=== PATIENT | male | born 1940 | race Caucasian/White ===

== ENCOUNTER 2016-04-02 20:38 | Inpatient (IN) | payer OTHER, BC ==
[~2016-04-02] VITALS: Ht 170.2 cm; Wt 96.6 kg
--- NOTE | ~2016-04-02 | EKG ---
[address] [place] [address] ELECTROCARDIOGRAM REPORT Name: SHAYZACH Room #: 211-P ADM IN M.R.#: [id number] Admission: 04/02/16 Attend Phys: Slade Amaya MD Discharge: Date of : 44 Report #: [id number] THIS REPORT FOR: //name// [facility] Test Date: 2016-04-02 Test Time: 22:05:54 Pat Name: ZACH SHAY Department: Room: 211 P Gender: M Digital Marketing Consultant: TK : 1940 Requested By: Barb Roberson Order Number: [id number] MD: Jose Castaneda Measurements Intervals [place] Rate: 80 P: -32 MN: 107 QRS: 118 QRSD: 157 T: 138 QT: 500 QTc: 577 Interpretive Statements Ventricular-paced rhythm No further analysis attempted due to paced rhythm Compared to ECG 09/28/2015 10:18:20 No significant changes Electronically Signed On 04-03-2016 16:06:26 FIRE TECHNOLOGY INSTRUCTOR by Jose Castaneda [email or web address] <ELECTRONICALLY SIGNED> By: Jose Castaneda MD 04/03/16 1606 04 04 Jose Castaneda MD /EPI
--- NOTE | ~2016-04-02 | HC ---
[facility] [place] [address] [place] [address] CONSULTATION Name: ZACH SHAY Room #: [facility] IN M.R.#: [id number] Admission: 04/02/16 Attend Phys: Slade Amaya MD Discharge: 04/08/16 Date of : 42 Report #: [id number] THIS REPORT FOR: //name// CC: Slade Owenswster DATE OF SERVICE: 04/03/2016 CONSULTATION CHIEF COMPLAINT: Infectious diseases. HISTORY OF PRESENT ILLNESS: The patient is a 76-year-old white male, who was admitted to [facility] on 04/02 complaining of fevers to 101, generalized bodyaches and increased dyspnea, not improved with Levaquin. Workup demonstrated influenza A as well as bilateral basilar infiltrates, heart failure and elevated troponin. Infectious Disease consultation was requested to assist with antibiotic management. The patient has a past history of hypertension and hyperlipidemia. He has aortic stenosis with a calculated valve area of one square centimeter. He has chronic heart failure and paroxysmal atrial fibrillation. He has a past history of endocarditis. The patient has a severe COPD, requiring 2-4 L of supplemental oxygen at home. He has sleep apnea and he has renal insufficiency, he has been treated in the past with 4 ventral hernias with repair with mesh. This was complicated with infection of the mesh. The patient has also had diverticulitis, requiring surgery including colostomy and then a colostomy takedown, and an appendectomy. He has had pacemaker placement. He notes allergy to Ativan and Flagyl. The said he got a rash from Keflex, but he is not sure that this is accurate. He has not had any problem with other cephalosporins. MEDICATION RECONCILIATION: The patient is currently on Levaquin 500 mg every 48 hours, Tamiflu 30 mg daily, dutasteride 0.5 mg daily, budesonide 0.5 mg daily, warfarin 6 mg daily, DuoNeb aerosol q.4h., amiodarone 20 mg daily, tamsulosin 0.4 mg daily, aspirin 81 mg daily, pantoprazole 40 mg daily, hydrocodone 1 tablet q.i.d. p.r.n., Tylenol p.r.n., guaifenesin 1200 mg q.12 and Lasix 40 mg IV b.i.d., this was discontinued after the ER. FAMILY HISTORY: Noncontributory. SOCIAL HISTORY: The patient is . He was a heavy smoker, up to 2 packs per day, but quit about 2 years ago. He has significant COPD. No history of alcohol or drugs. REVIEW OF SYSTEMS: The patient notes he is feeling much better, his dyspnea is [facility] [address] [place] [address] CONSULTATION Name: SHAYZACH BAILEY Room #: 211-P DIS IN M.R.#: [id number] Admission: 04/02/16 Attend Phys: Slade Amaya MD Discharge: 04/08/16 Date of : 42 Report #: [id number] markedly improved. He is not really complaining of fevers, chills, or sweats. He has chronic dyspnea. He is on BiPAP with supplemental oxygen. The patient denies any headache, sinus congestion, sore throat, trouble swallowing. Maximum temperature at home was 101. The patient did have a cough that is somewhat productive, but has improved now . Dyspnea has improved. He is not short of breath at rest at this time. He has no pain in the chest. He is not complaining of any arrhythmias. The patient denies nausea, vomiting, or diarrhea. Genitourinary, no complaints. Extremities, no complaints. PHYSICAL EXAMINATION: GENERAL: The patient appears stated age, alert, oriented and comfortable, not in any distress. VITAL SIGNS: Normal. The patient is afebrile. Blood pressure 95/37. SKIN: Shows no rash, no lesions. ENT: Negative. CARDIOVASCULAR: Heart sounds normal. CHEST: Breath sounds are diminished. ABDOMEN: Belly is soft and not tender. EXTREMITIES: Unremarkable. LABORATORY DATA: White count is 9.9 and hemoglobin 10.4. Electrolytes are normal. BUN 59 and creatinine 3.2. Liver function tests are normal. Troponin is elevated at 2.0 in the ER, is now down to 1.27. The chest x-ray shows right and left lower lobe infiltrate versus small effusions. Influenza antigen was positive for influenza A. In summary, the patient is severe heart and lung disease, who develops influenza A with infiltrates, heart failure and possible STEMI. At this time, I concur with the choice of Oseltamivir for the influenza. Levaquin has become increasing problematic for empiric therapy as we are seeing increasing resistance to quinolones. I would rather use Rocephin to cover the possibility of a secondary bacterial infection. It is possible that the infiltrates may just be related to influenza. Pneumococcal and legionella antigens may be helpful to look for bacterial secondary infection. We need to continue isolation for 5 days, although the patient is on the Tamiflu. I appreciate the opportunity to offer input in the care of this pleasant gentleman. Dr. Castaneda will return tomorrow for additional followup. We will be obtaining sputum for culture, this may help direct further therapy. [facility] [address] [place] [address] CONSULTATION Name: ZACH SHAY Room #: 211-P [facility] IN M.R.#: [id number] Admission: 04/02/16 Attend Phys: Slade Amaya MD Discharge: 04/08/16 Date of : 42 Report #: [id number] Thank you again for this consultation. <ELECTRONICALLY SIGNED> By: Isael Doss MD 04/17/162017 0955 1239 Isael Doss MD /nt
--- NOTE | ~2016-04-02 | 2DMMODE ---
[facility] [email or web address] [address] 2 D/M-MODE ECHOCARDIOGRAM Name: ZACH SHAY Room #: 211-P [facility] IN .R.#: [id number] Admission: 04/02/16 Attend Phys: Sánchez Weiss Discharge: Date of : 42 Date of Service: 04/04/16 0955 Report #: [id number] THIS REPORT FOR: //name// Transthoracic Echocardiography Ordering physician: Barb Roberson Referring physician: Hank Mishra M.D., Elinor Mtz, Barb Molina Plant Accountant: Nan Campos Indications/History: NSTEMI. Hx: NISCM, COPD, Afib, HLP, AICD BP: 124 / HR: 76bpm Height: 67in Weight: 213.6lb 43 Study data: M-mode, complete 2D, complete spectral Doppler, and color Doppler. Location: Echo laboratory. Routine. Image quality was adequate. The study was technically limited due to body habitus and lung disease. Parasternal window was low; off axis apical window. 2D measurements Normal Normal LVID ED 64.3mm 36-57 IVS ED 9.3mm 6-11 LVID ES 54.5mm 23-40 LVPW ED 10.3mm 6-11 LA volume 34ml/m2 16-28 AoRoot diam 38mm 21-37 index ED LVOT diameter 24mm 18-23 Findings: Left ventricle: The cavity size was dilated. Wall thickness was normal. Systolic function was severely reduced. The estimated ejection fraction was in the range of 25% to 30%. Severe diffuse hypokinesis. Right ventricle: The cavity size was normal. Systolic function was mildly reduced. Right atrium: The atrium was mildly dilated. Pacer wire or [facility] [place] [place] [address] 2 D/M-MODE ECHOCARDIOGRAM Name: ZACH SHAY Room #: 211-P ADM IN M.R.#: [id number] Admission: 04/02/16 Attend Phys: Sánchez Weiss Discharge: Date of : 42 Date of Service: 04/04/16 0955 Report #: [id number] catheter noted in right atrium. Left atrium: The atrium was mildly dilated. Volume index: 34ml/m2 (S). Aortic valve: Moderately calcified leaflets. Mobile, filamentous density consistent with known vegetation. Doppler: There was moderate stenosis. Mild regurgitation. Peak velocity: 328.5cm/s (S). Mean gradient: 25.7mm Hg (S). Peak gradient: 43.2mm Hg (S). Similar to Mar 2015. Mitral valve: The valve appears to be grossly normal. Doppler: There was no evidence for stenosis. At least moderate regurgitation. Peak E-wave velocity: 95.5cm/s. Peak gradient: 3.7mm Hg (D). Peak A-wave velocity: 77.1cm/s. Tricuspid valve: Structurally normal valve. Doppler: There was no evidence for stenosis. Mild regurgitation. Regurgitant peak velocity: 297.3cm/s. Peak RV-RA gradient: 35mm Hg (S). Pulmonic valve: Structurally normal valve. Doppler: There was no evidence for stenosis. Trivial regurgitation. Pericardium: There was no pericardial effusion. Aorta: Aortic root: The aortic root was upper limits of normal in size. Pulmonary artery: Systolic pressure was estimated to be 40mm Hg. Diastolic function: Features are consistent with a pseudonormal left ventricular filling pattern, with concomitant abnormal relaxation and increased filling pressure (grade 2 diastolic dysfunction). Systemic veins: Inferior vena cava: The vessel was normal in size; the respirophasic diameter changes were in the normal range (= 50%). Conclusions Technically difficult study. 1. Left ventricle: Systolic function was severely reduced. The estimated ejection fraction was in the range of 25% to 30%. Severe diffuse hypokinesis. 2. Aortic valve: Moderately calcified leaflets. Mobile, filamentous density consistent with known vegetation. There was moderate stenosis. Mild regurgitation. Mean gradient: 25.7mm Hg (S). Peak gradient: 43.2mm Hg (S). Similar to Mar 2015. [facility] [address] [place] [address] 2 D/M-MODE ECHOCARDIOGRAM Name: ZACH SHAY Room #: 211-P [facility] IN [facility]#: [id number] Admission: 04/02/16 Attend Phys: Sánchez Weiss Discharge: Date of : 44 Date of Service: 04/04/16 0955 Report #: [id number] 3. Mitral valve: The valve appears to be grossly normal. At least moderate regurgitation. 4. Pericardium, extracardiac: There was no pericardial effusion. 5. Pulmonary arteries: Systolic pressure was estimated to be 40mm Hg. <ELECTRONICALLY SIGNED> By: Hank Mishra MD, [facility] 04/04/16 1117 0955 1117 Hank Mishra MD, FACC /joshua
--- NOTE | ~2016-04-02 | EKG ---
[address] [address] ELECTROCARDIOGRAM REPORT Name: SHAYZACH Room #: 211-P ADM IN M.R.#: [id number] Admission: 04/02/16 Attend Phys: Slade Amaya MD Discharge: Date of : 42 Report #: [id number] THIS REPORT FOR: //name// [facility] Test Date: 2016-04-03 Test Time: 07:49:08 Pat Name: ZACH SHAY Department: Room: 211 P Gender: M Concrete Technician: LACHELLE : 1940 Requested By: Jose Castaneda Order Number: [id number] MD: Jose Castaneda Measurements Intervals [place] Rate: 67 P: 86 SD: 115 QRS: 104 QRSD: 160 T: QT: 452 QTc: 478 Interpretive Statements A-V dual-paced rhythm with some inhibition No further analysis attempted due to paced rhythm Compared to ECG 09/28/2015 10:18:20 No significant changes Electronically Signed On 04-03-2016 16:09:20 GED INSTRUCTOR by Jose Castaneda [email or web address] <ELECTRONICALLY SIGNED> By: Jose Castaneda MD 04/03/16 1609 0749 0749 Jose Castaneda MD /EPI
--- NOTE | ~2016-04-02 | HC ---
[facility] [place] [place] [address] CONSULTATION Name: ZACH SHAY Room #: [facility] ADM IN M.R.#: [id number] Admission: 04/02/16 Attend Phys: Slade Amaya MD Discharge: Date of : 42 Report #: [id number] THIS REPORT FOR: //name// CC: Slade Mtz DATE OF ADMISSION: 04/02/2016. DATE OF CONSULTATION: 04/03/2016 REASON FOR CONSULTATION: Acute kidney injury on top of chronic kidney disease. HISTORY OF PRESENT ILLNESS: This is a 76-year-old male who was transferred up from [facility]. He presented with dyspnea and cough and started feeling poorly, had myalgias and became more short of breath. He went to [facility]. Chest x-ray showed some left lower extremity infiltrate. He was positive for influenza A. He was transferred here to [facility]. At this time, he states he is feeling better. He still dyspneic. He is still having cough. He is not having chest pain. He says he just does not feel as sick as he did yesterday. We are asked to see him because he has an elevated creatinine level. It is up to 3.2 today. He runs a baseline creatinine in the 1.6-1.9 range. He is aware that he has been told previously as chronic kidney disease stage III. He denies the use of any nonsteroidals. He is chronically on torsemide 80 mg a day as a diuretic. Again, he runs a baseline creatinine level in the 1.6-1.9 range. In reviewing his vital signs, he has had intermittent episodes of hypotension since admission several are running in the upper 80-90 systolic range of diastolics 30-40, heart rates have been in the 70s and 80s mostly he has been afebrile, at times he has been mildly hypoxemic. He reports no difficulty passing urine. He says often times he has edema. He is taking the torsemide at home 80 mg daily, has been put on some IV Lasix on a b.i.d. basis here. PAST MEDICAL HISTORY: Nonischemic cardiomyopathy, although I would note he had an elevated troponin when he came in. He has a biventricular pacemaker in place. He has some COPD, wears chronic oxygen at home. He also has paroxysmal atrial fibrillation, some chronic anemia, chronic obstructive sleep apnea, prior deep venous thrombosis, hyperlipidemia. He also has some chronically elevated creatinine as noted above. He has had his AICD placed. He has had bilateral rotator cuff surgery, surgery for diverticulitis, tonsillectomy, ileostomy and colostomy, both establishment and then take down. MEDICATIONS: On admission include amiodarone 200 mg daily, Colestid, Avodart 0.5 mg daily, Nexium 40 mg daily, fluticasone inhaler, Mucinex, hydrocodone p.r.n., meropenem, metolazone 5 mg twice weekly, metoprolol 100 mg daily, Singulair, Carafate 1 g t.i.d., tamsulosin 0.4 mg daily, Spiriva inhaler, torsemide 80 mg daily and warfarin. [address] [address] CONSULTATION Name: ZACH SHAY BAILEY Room #: 211-P [facility] IN M.R.#: [id number] Admission: 04/02/16 Attend Phys: Slade Amaya MD Discharge: Date of : 42 Report #: [id number] ALLERGIES: Are listed to HEPARIN, LORAZEPAM, CEPHALOSPORINS, METRONIDAZOLE, and ZAFIRLUKAST. FAMILY HISTORY: Negative for renal disease. SOCIAL HISTORY: The patient is , lives in [place], [place]. He is retired. REVIEW OF SYSTEMS: He is very hard of hearing. He normally has dyspnea at baseline. He says he also normally has some edema. He takes the high dose torsemide and keep it fairly well controlled. He tried to avoid sodium in his diet. He has had the myalgias and also some chest pain prior to arrival, after it has been somewhat down. He thinks he possibly has some fever and did have documented chills along with the myalgias. He previously reported difficulty voiding urine, but says that since he has been on the finasteride and also on the high dose diuretics, that has gotten easier. PHYSICAL EXAMINATION: GENERAL: A 76-year-old male, awake and responsive, does appear mildly dyspneic, has supplemental oxygen on board. VITAL SIGNS: Most recent blood pressure 102/45, heart rate 89, temperature 97.7, oxygen saturation of 92%. HEENT: Shows pupils are equal and reactive. Sclerae nonicteric. Oral mucosa is somewhat dry. NECK: Veins are not distended. NECK: Supple, no adenopathy. CHEST: Shows decreased breath sounds bilaterally in the bases. I hear no wheezes, few rhonchi are present. CARDIOVASCULAR: Heart has a regular rate and rhythm, somewhat distended heart sounds. ABDOMEN: Mildly protuberant. He has a substantial ventral hernia in place. Bowel sounds are present. Abdomen is soft and nontender. EXTREMITIES: Showed no peripheral edema at this time. He has diminished peripheral pulses. LABORATORY DATA: Sodium 138, potassium 3.7, chloride 98, bicarbonate 30, BUN 59, creatinine 3.2, glucose 156. Calcium 7.5, total protein 6.4, albumin 2.7. White count 9.9, hemoglobin 10.2, hematocrit 32.4, platelets 205,000. Blood gas on admission pH 7.38, pCO2 of 47.7, pO2 of 95, lactate 2.35. I reviewed a recent ultrasound of his kidneys and a recent CT scan of his chest, which showed some of the upper poles of the kidneys, he has multiple prior acquired cysts in his kidneys, no evidence of obstruction. ASSESSMENT: 1. Acute kidney injury. Creatinine levels up to 3.2. He has not been [facility] [address] [place] [address] CONSULTATION Name: LAURITAZACH BAILEY Room #: 211-P [facility] IN ..#: [id number] Admission: 04/02/16 Attend Phys: Slade Amaya MD Discharge: Date of : 42 Report #: [id number] oliguric. I think he had some problems with his acute infection and likely some hypotension. He is chronically on an angiotensin receptor lokesh, also is on the high dose diuretics. I cannot see that he received any other nephrotoxic exposures. Because of his chronic kidney disease, he is certainly at risk for acute worsening and I think that has happened now. I expect this should improve as he gets over his acute pulmonary process. 2. Chronic kidney disease stage III. He has somewhat dense kidneys on scan and has multiple acquired cysts all consistent with that. 3. Nonischemic cardiomyopathy, chronic and severe, he will need to be back on high dose diuretics going forward, but will hold them at this time. 4. Acute pulmonary infection with influenza A positivity. Workup ongoing per Pulmonary. 5. Chronic lower extremity edema by his report, but it has actually improved at this time. We will keep him off his diuretics as noted above. PLAN: 1. Continue current medications. 2. I will also hold the Lasix, which has been ordered. 3. He is taking enough and he should be able to maintain hydration on his own. 4. We will check fractional excretion of sodium. 5. I expect he should show improvement in the next few days. 6. We will follow along the care of this very pleasant patient. <ELECTRONICALLY SIGNED> By: Fahad Barrientos MD 04/04/16 0731 1705 1821 Fahad Barrientos MD /nt
[~2016-04-02 20:38] MED LIST: ACCUPRIL; ACETAMINOPHEN325 M1 PO; ACETAMINOPHEN650 M5 PO; ADULT LOW DOSE81 MG PO; ADVAIR 250-501 EACH INH; ALLEGRA180 MG PO; AMIODARONE HCL400 MG PO; AMOXICILLIN 50500 M1 PO; AMOXICILLIN 50500 MG PO; APAP650 PO; ASPIR 8181 MG PO; ASPIRIN BUFFER325 MG PO; AUGMENTIN 875-1 EACH; AUGMENTIN 875875 MG PO; AVODART0.5 MG PO; B-121000 MC2 PO; BACTRIM DS TAB1 EACH PO; BENTYL10 MG PO; CARAFATE 1 GM TA1 G1 PO; CARAFATE 11 GM/10 M1 PO; CARAFATE1 GM/10 ML PO; CARVEDILOL12.5 MG PO; CENTRUM SILVER1 EAC1 PO; CENTRUM SILVER1 EAC4 PO; CIPRO250 M1 PO; CIPRO500 MG PO; COLACE100 MG PO; COLESTID1 GM PO; COUMADIN 3 MG TA3 M1 PO; COUMADIN 5 MG TA5 M1 PO; COUMADIN7.5 MG PO; DEEP SEA NASAL44 M1 NASAL; DEMADEX20 MG PO; DILTIAZEM 24HR240 M1 PO; DIPHENOXYLATE/A1 TA1 PO; DOXYCYCLINE 10100 M2 PO; DOXYCYCLINE 10100 MG PO; FENOFIBRATE145 MG PO; FERREX 150150 MG PO; FISHOIL; FLEXERIL PO; FLOMAX PO; GENTAMICIN IV; HYDROCODON-ACE1 EAC7 PO; HYDROCODONE-AP1 EAC6 PO; IBUPROFEN 800800 M1 PO; ILEVRO1.7 ML OP; IMDUR 30 MG TAB30 M1 PO; ISOSORBIDE MONO30 M1 PO; K-DUR10 MEQ PO; KEFLEX500 MG PO; LANOXIN 0.250.25 M1 PO; LASIX 40 MG TAB40 M1 PO; LASIX 40 MG TAB40 M2 PO; LASIX 40 MG TAB40 MG PO; LEVALBUTER1.25 MG/0. INH; LEVALBUTER1.25 MG/3 IH; LEVAQUIN; LEVAQUIN 500 M500 M2 PO; LEVAQUIN 500 M500 M4 PO; LOMOTIL TABLET1 EACH PO; LOPRESSOR100 M1 PO; LOTEMAX5 ML; MAGNESIUM400 MG PO; MEROPENEM500 MG IV; METOLAZONE 2.52.5 M1 PO; METOLAZONE 5 MG5 MG PO; MUCINEX TA600 MG/TA1 PO; MUCINEX TA600 MG/TA2 PO; MUCINEX600 MG PO; MULTI-VITAMIN1 EAC5 PO; MULTIVITAMINS1 EAC7 PO; NEXIUM40 MG PO; NICOTINE TRANSD21 M1 TRANSDERM; NITROGLYCERIN0.4 MG PO; NITROGLYCERIN0.4 MG SUBLING; NORCO 10-325 T1 EACH PO; NORCO 5-325 TA1 EACH; NORCO 5-325 TA1 EACH PO; NYSTATIN 1100000 U/M PO; PACERONE 200 M200 M1 PO; PACERONE 200 M200 MG PO; PLAVIX 75 MG TA75 M1 PO; POTASSIUM PO; POTASSIUM20 PO; PREDNISONE 10 M10 MG; PREDNISONE 10 M10 MG PO; PREDNISONE 20 M20 M1 PO; PREDNISONE 20 M20 MG PO; PROBIOTIC1 EAC1 PO; PROCTOFOAM-HC 110 GM; PROCTOFOAM-HC F10 G1 RECTAL; PROMETHAZINE V180 ML; PROMETHAZINE V480 M1 PO; PROMETHAZINE/C118 ML PO; PROTONIX40 M1 PO; QUINU10 PD PO; QUINU5 PD PO; REQUIP 1 MG TABL1 M1 PO; SINGULAIR 10 MG10 M1 PO; SINGULAIR 10 MG10 MG PO; SPIRIVA INH; TAMSULOSIN HCL0.4 M1 PO; TOPROL XL100 MG PO; TOPROL XL25 MG PO; TORSEMIDE20 MG PO; TRICOR; TRICOR145 MG PO; TYLENOL325 MG PO; VANCOMYCIN1.25 GM/21 IV; VERAMYST10 GM INH; VERAMYST10 GM NASAL; VESICARE 5 MG TA5 M1 PO; VESICARE10 M1 PO; VICODIN ES TAB1 EACH PO; VIGAMOX3 M1 OTIC; VITAMIN C1000 MG PO; XOPENEX 0.63 MG/3 M1 INH; XOPENEX 1.25 MG/3 ML INH; XOPENEX1.25 MG/3 INH; ZAROXOLYN 5MG TA5 MG PO; [UNRECOGNIZED DRUG - OTHER] VG
[2016-04-02 21:10] VITALS: BP 88/40
[2016-04-02 21:42] LABS: INR 1.3; PROTIME 13.9 Seconds (9.3-11.4)
[2016-04-02 22:10] LABS: ABG SAMPLE TYPE ARTERIAL; BE(vivo) 2.5 mmol/L (-2 to +3); LACTATE 2.35 mmol/L (0.5-2.0); PCO2 47.7 mmHg (35.0-45.0); Pressure Support 8 cm H20; STICK SITE R.RADIAL; pH 7.387 (7.360-7.450); sO2 97.1 % (92.0-98.0); tCO2 29.5 mmol/L (24.0-30.0)
[2016-04-02 23:27] VITALS: BP 110/72
[2016-04-03 02:15] LABS: HEMATOCRIT 32.4 % (42.0-52.0); HEMOGLOBIN 10.2 gm/dL (14.0-18.0); MCH 24.6 pg (26.0-34.0); MCHC 31.5 % (28.0-37.0); MCV 78.1 fL (80.0-100.0); RBC 4.15 mil/uL (4.50-6.00); RDW 21.6 % (10.5-14.5); WBC 9.9 thou/uL (4.0-11.0)
[2016-04-03 03:33] VITALS: BP 83/42
[2016-04-03 03:39] LABS: ALBUMIN 2.7 g/dL (3.4-5.0); ALKALINE PHOSPHATASE 66 U/L (46-116); ANION GAP 10 mmol/L (7-16); BUN 59 mg/dL (7-18); CALCIUM 7.5 mg/dL (8.5-10.1); CHLORIDE 98 mmol/L (98-107); CO2 30 mmol/L (21-32); CREATININE 3.2 mg/dL (0.6-1.3); GLUCOSE 156 mg/dL (70-99); POTASSIUM 3.7 mmol/L (3.5-5.1); SGOT 26 U/L (15-37); SGPT 20 U/L (30-65); SODIUM 138 mmol/L (136-145); TOTAL BILIRUBIN 0.3 mg/dL (<0.1-1.0); TOTAL PROTEIN 6.4 g/dL (6.4-8.2)
[2016-04-03 03:40] LABS: CHOLESTEROL 142 mg/dL (<200); HDL CHOLESTEROL 27 mg/dL (>40); LDL CHOLESTEROL 87 mg/dL (<100); SERUM ASSESSMENT Clear; TC:HDL 5.3 Ratio (Not establshd); TRIGLYCERIDE 143 mg/dL (<150); VLDL 29 mg/dL (<40)
[2016-04-03 03:43] LABS: TROPONIN-I 1.76 ng/mL (<0.04-0.07)
[2016-04-03 07:40] VITALS: BP 90/35
[2016-04-03 11:20] VITALS: BP 102/45
[2016-04-03 15:35] VITALS: BP 94/45
[2016-04-03 19:52] VITALS: BP 95/37
[2016-04-04 04:12] LABS: INR 1.2; PROTIME 12.9 Seconds (9.3-11.4)
[2016-04-04 04:19] VITALS: BP 100/59
[2016-04-04 04:30] LABS: ALBUMIN 2.6 g/dL (3.4-5.0); CREATININE 2.8 mg/dL (0.6-1.3); PHOSPHORUS 3.7 mg/dL (2.5-4.9); POTASSIUM 3.1 mmol/L (3.5-5.1)
[2016-04-04 08:00] VITALS: BP 124/43
[2016-04-04 11:25] VITALS: BP 107/32
[2016-04-04 16:30] VITALS: BP 111/56
[2016-04-04 16:58] LABS: ABG SAMPLE TYPE ARTERIAL; BE(vivo) 4.4 mmol/L (-2 to +3); HCO3 28.9 mmol/L (22.0-26.0); LACTATE 2.18 mmol/L (0.5-2.0); O2(CT) 14.6 mL/dL (15.0-23.0); O2Hb 95.1 % (92.0-98.0); PCO2 42.9 mmHg (35.0-45.0); PO2 96.9 mmHg (80.0-100.0); pH 7.446 (7.360-7.450); sO2 97.6 % (92.0-98.0); tCO2 30.2 mmol/L (24.0-30.0)
[2016-04-04 17:00] LABS: STICK SITE L.RADIAL
[2016-04-04 20:35] VITALS: BP 108/53
[2016-04-05 04:02] VITALS: BP 100/45
[2016-04-05 04:18] LABS: HEMATOCRIT 30.6 % (42.0-52.0); HEMOGLOBIN 9.7 gm/dL (14.0-18.0); MCH 24.4 pg (26.0-34.0); MCHC 31.7 % (28.0-37.0); RBC 3.97 mil/uL (4.50-6.00); RDW 22.2 % (10.5-14.5); WBC 4.6 thou/uL (4.0-11.0)
[2016-04-05 04:34] LABS: ALBUMIN 2.6 g/dL (3.4-5.0); CALCIUM 8.1 mg/dL (8.5-10.1); CREATININE 2.1 mg/dL (0.6-1.3); MAGNESIUM 1.6 mg/dL (1.8-2.4); PHOSPHORUS 3.7 mg/dL (2.5-4.9); POTASSIUM 3.4 mmol/L (3.5-5.1)
[2016-04-05 08:08] VITALS: BP 120/52
[2016-04-05 09:52] LABS: INR 1.6; PROTIME 16.1 Seconds (9.3-11.4)
[2016-04-05 12:11] VITALS: BP 115/61
[2016-04-05 16:05] VITALS: BP 113/83
[2016-04-05 19:04] VITALS: BP 108/47
[2016-04-05 22:06] LABS: URINE CREATININE-RANDOM* 37.4 mg/dL (Not Estab.)
[2016-04-06 03:59] VITALS: BP 129/59
[2016-04-06 04:32] LABS: HEMATOCRIT 32.8 % (42.0-52.0); HEMOGLOBIN 10.1 gm/dL (14.0-18.0); MCH 24.2 pg (26.0-34.0); MCHC 30.9 % (28.0-37.0); MCV 78.5 fL (80.0-100.0); RBC 4.17 mil/uL (4.50-6.00); RDW 22.5 % (10.5-14.5); WBC 4.9 thou/uL (4.0-11.0)
[2016-04-06 05:08] LABS: ALBUMIN 2.8 g/dL (3.4-5.0); CALCIUM 8.5 mg/dL (8.5-10.1); CREATININE 1.7 mg/dL (0.6-1.3); PHOSPHORUS 3.5 mg/dL (2.5-4.9); POTASSIUM 3.8 mmol/L (3.5-5.1)
[2016-04-06 08:40] VITALS: BP 120/56
[2016-04-06 09:41] LABS: INR 1.9; PROTIME 19.2 Seconds (9.3-11.4)
[2016-04-06 12:01] VITALS: BP 135/68
[2016-04-06 16:48] VITALS: BP 133/70
[2016-04-06 20:28] VITALS: BP 135/70
[2016-04-06 22:07] LABS: INFLUENZA B Negative (Negative); METAPNEUMOVIRUS Negative (Negative)
[2016-04-07 03:15] LABS: HEMATOCRIT 33.1 % (42.0-52.0); HEMOGLOBIN 10.3 gm/dL (14.0-18.0); MCH 24.2 pg (26.0-34.0); MCHC 30.9 % (28.0-37.0); MCV 78.3 fL (80.0-100.0); RBC 4.23 mil/uL (4.50-6.00); RDW 22.1 % (10.5-14.5)
[2016-04-07 03:35] LABS: CALCIUM 8.3 mg/dL (8.5-10.1); CREATININE 1.6 mg/dL (0.6-1.3); POTASSIUM 4.7 mmol/L (3.5-5.1)
[2016-04-07 04:32] VITALS: BP 133/55
[2016-04-07 07:49] LABS: INR 2.7; PROTIME 28.3 Seconds (9.3-11.4)
[2016-04-07 12:12] VITALS: BP 123/57
[2016-04-07 15:52] VITALS: BP 117/58
[2016-04-07 19:44] VITALS: BP 118/55
[2016-04-08 03:42] VITALS: BP 136/36
[2016-04-08 04:53] LABS: HEMATOCRIT 34.5 % (42.0-52.0); HEMOGLOBIN 10.6 gm/dL (14.0-18.0); MCH 23.9 pg (26.0-34.0); MCHC 30.8 % (28.0-37.0); MCV 77.7 fL (80.0-100.0); RBC 4.45 mil/uL (4.50-6.00); RDW 22.1 % (10.5-14.5)
[2016-04-08 05:14] LABS: CALCIUM 8.6 mg/dL (8.5-10.1); CREATININE 1.6 mg/dL (0.6-1.3)
[2016-04-08 05:28] LABS: POTASSIUM 4.8 mmol/L (3.5-5.1)
[2016-04-08 07:15] VITALS: BP 136/36
[2016-04-08 08:50] VITALS: BP 121/48
[2016-04-08 09:13] LABS: INR 3.8; PROTIME 38.2 Seconds (9.3-11.4)
[2016-04-08] MEDS ORDERED: PREDNISONE 10 M10 MG PO (10:26)
[2016-04-08] MEDS ORDERED: DEMADEX20 MG PO (10:26)
[2016-04-08 10:53] VITALS: BP 136/36
== END 2016-04-08 15:45 | disposition home health service (06) | DRG 177 ==
LOC: 2N 20:38
PROVIDERS: Family Medicine; Hospitalist; Internal Medicine Nephrology; Internal Medicine Pulmonary Disease; Nurse Practitioner
PROC: 5A09457 Assistance with Respiratory Ventilation, 24-96 Consecutive Hours, Continuous Positive Airway Pressure (ICD-10-PCS; principal; 2016-04-02)
DX: J15.6 Pneumonia due to other Gram-negative bacteria (principal); J96.21 Acute and chronic respiratory failure with hypoxia; I50.43 Acute on chronic combined systolic (congestive) and diastolic (congestive) heart failure; I13.0 Hypertensive heart and chronic kidney disease with heart failure and stage 1 through stage 4 chronic kidney disease, or unspecified chronic kidney disease; N17.9 Acute kidney failure, unspecified; J44.1 Chronic obstructive pulmonary disease with (acute) exacerbation; I42.8 Other cardiomyopathies; I25.110 Atherosclerotic heart disease of native coronary artery with unstable angina pectoris; J09.X1 Influenza due to identified novel influenza A virus with pneumonia; E78.5 Hyperlipidemia, unspecified; I35.0 Nonrheumatic aortic (valve) stenosis; J09.X2 Influenza due to identified novel influenza A virus with other respiratory manifestations; G47.33 Obstructive sleep apnea (adult) (pediatric); K21.9 Gastro-esophageal reflux disease without esophagitis; N18.3 Chronic kidney disease, stage 3 (moderate); I48.2 Chronic atrial fibrillation; M79.1 Myalgia; I48.0 Paroxysmal atrial fibrillation; N40.0 Benign prostatic hyperplasia without lower urinary tract symptoms; Z88.8 Allergy status to other drugs, medicaments and biological substances; Z99.81 Dependence on supplemental oxygen; Z98.890 Other specified postprocedural states; Z86.718 Personal history of other venous thrombosis and embolism; Z87.891 Personal history of nicotine dependence; Z95.810 Presence of automatic (implantable) cardiac defibrillator; Z93.3 Colostomy status; Z93.2 Ileostomy status; Z82.49 Family history of ischemic heart disease and other diseases of the circulatory system; Z79.82 Long term (current) use of aspirin; Z28.21 Immunization not carried out because of patient refusal
CPT/HCPCS: 10081

== ENCOUNTER 2016-07-16 10:42 | Inpatient (IN) | payer OTHER, BC ==
[~2016-07-16] VITALS: Ht 170.2 cm; Wt 98.4 kg
--- NOTE | ~2016-07-16 | HC ---
[facility] [place] [place] [address] CONSULTATION Name: ZACH SHAY BAILEY Room #: 455-[facility] IN M.R.#: [id number] Admission: 07/16/16 Attend Phys: Alpesh Dumont MD Discharge: 07/18/16 Date of : 42 Report #: [id number] THIS REPORT FOR: //name// CC: Jeff ATKINSON PCP DATE OF SERVICE: 07/17/2016 REASON FOR CONSULTATION: Exacerbation of chronic obstructive pulmonary disease. IMPRESSION: 1. Jqjuo-hd-ulsyvqg hypoxic respiratory failure. 2. Basilar infiltrate. 3. Left-sided chest pressure. 4. Possible pleural effusion. 5. Cardiomyopathy/atrial fibrillation. 6. Elevated troponin. 7. Fgcas-xf-yvbiive renal failure. 8. Hypercapnic respiratory failure. PLAN: Agree with corticosteroids. We will add vancomycin at present. We will leave on Levaquin as established regimen. May switch to Zosyn. We will continue aerosol and mucolytic. May wish to diurese. If D-dimer is significantly elevated, we will do a V/Q scan. He will continue using his Trilogy. HISTORY OF PRESENT ILLNESS: This 76-year-old comes in and relates that for about 6 weeks he has been having left-sided chest discomfort, cough, no hemoptysis. He has been using his Trilogy and he is taking his Coumadin. He denies fever, chills or night sweats. He denies nausea or vomiting. He has progressive dyspnea on minimal exertion. PAST SURGICAL HISTORY: Include ICD, rotator cuff, tonsillectomy, ostomy with takedown, hernia repair. FAMILY HISTORY: Cardiomyopathy. SOCIAL HISTORY: Quit smoking 2 years ago. Occasional ETOH. Lives with family. REVIEW OF SYSTEMS: No fever or chills. Positive cough, dyspnea, left chest pressure, no peripheral edema. No nausea or vomiting. No hemoptysis, hematemesis or hematuria. He recently saw Dr. Munoz, placed on prednisone and Levaquin. HOME MEDICATIONS: Include Flomax, warfarin, amiodarone, metoprolol, hydrocodone, torsemide and Levaquin. [facility] [address] [place] [address] CONSULTATION Name: ZACH SHAY Room #: 455-P [facility] IN [facility].#: [id number] Admission: 07/16/16 Attend Phys: Alpesh Dumont MD Discharge: 07/18/16 Date of : 42 Report #: [id number] PHYSICAL EXAMINATION: VITAL SIGNS: Temperature 36.7, pulse 84, respirations 19 and BP 102/53, on 6-1/2 liters 91%. NEUROLOGIC: He is alert and just having ate, in no distress. NECK: No JVD. LUNGS: Mild expiratory wheeze bilaterally, decreased breath sounds right greater than left. HEART: Regular. ABDOMEN: Bowel sounds present, soft, surgical sites noted. EXTREMITIES: Show no clubbing, cyanosis or edema. LABORATORY DATA: Chest x-ray showed bibasilar atelectasis, possible small right effusion. BUN 46, creatinine 2.3, albumin 32. White count 13.4, hemoglobin 9.8, platelets 330. Troponin 0.11. We will follow closely with you. <ELECTRONICALLY SIGNED> By: Moraima Peres MD 07/19/16 2316 0929 2206 Moraima Peres MD /nt
--- NOTE | ~2016-07-16 | HC ---
[facility] [place] [address] CONSULTATION Name: ZACH SHAY Room #: 455-[facility] IN M.R.#: [id number] Admission: 07/16/16 Attend Phys: Alpesh Dumont MD Discharge: 07/18/16 Date of : 44 Report #: [id number] THIS REPORT FOR: //name// CC: Jeff Newton NO PCP REASON FOR CONSULTATION: Elevated troponin. HISTORY OF PRESENT ILLNESS: The patient is a 76-year-old male with a history of COPD, resolved; nonischemic cardiomyopathy, status post Bi-V ICD implantation, who presents to the emergency room with worsening shortness of breath. He reports the shortness of breath has been a kind of worse for a few weeks. Recently saw Dr. Munoz who gave him antibiotics and some steroids. He denies any problems with chest heaviness or chest tightness. He denies any PND or orthopnea. He denies any increased swelling. He denies presyncope or syncope. REVIEW OF SYSTEMS: GENERAL: No fevers or chills. HEENT: No blurred vision. CARDIOVASCULAR: As above. PULMONARY: No productive cough. GASTROINTESTINAL: No nausea or vomiting. GENITOURINARY: No dysuria. MUSCULOSKELETAL: No myalgias or arthralgias. ENDOCRINE: No heat or cold intolerance. NEUROLOGIC: No focal weakness or stroke-like symptoms. PAST MEDICAL HISTORY: 1. Nonischemic cardiomyopathy, last echo EF 50-55%. 2. COPD. 3. AFib. 4. Bi-V ICD. 5. Obstructive sleep apnea. 6. Chronic renal insufficiency. 7. Prior DVT. 8. 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 9. Hypertension. 10. GERD. 11. Ileostomy and colostomy. 12. 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 SOCIAL HISTORY: Does not smoke. Lives at home. FAMILY HISTORY: Noncontributory. ALLERGIES: HEPARIN, LORAZEPAM, METRONIDAZOLE, VANCOMYCIN. [facility] [address] [place] [address] CONSULTATION Name: ZACH SHAY [place] Room #: [address] [place] [address]#: [id number] Admission: 07/16/16 Attend Phys: Alpesh Dumont MD Discharge: 07/18/16 Date of : 44 Report #: [id number] HOME MEDICATIONS: Include fluticasone and salmeterol, Nexium, Montelukast, tamsulosin, levalbuterol, nitroglycerin, warfarin, hydrocodone, acetaminophen, amiodarone 200 mg a day, sucralfate, guaifenesin, metoprolol 100 mg in the evening, Avodart, Spiriva, fluticasone, and Levaquin. PHYSICAL EXAMINATION: VITAL SIGNS: Temperature is 36.7, pulse 84, respirations 19, blood pressure 102/53, and saturations are 90%-91%. GENERAL: He is in no acute distress, walking around in his room. HEENT: Oropharynx is clear. NECK: Supple. No thyromegaly or carotid bruits. HEART: Regular rate and rhythm with normal S1 and S2. No S3, S4. He does not have elevated jugular venous pressure. LUNGS: Clear to auscultation bilaterally. There are no crackles. There are diminished breath sounds bilaterally. ABDOMEN: Soft, nontender, nondistended with no hepatosplenomegaly. He has the deformities to the lower abdomen. EXTREMITIES: There is no clubbing, cyanosis, or edema. Cranial nerves II-XII are intact. His EKG shows normal sinus rhythm with biventricular paced rhythm. Telemetry shows a normal sinus rhythm with some nonsustained VT. LABORATORY DATA: His white count is 13.4, hemoglobin 9.8, his platelets are 330. His blood gas 7.4, pCO2 of 39, pO2 of 64. Coags: INR is 1.7. Chemistries: Sodium is 137, potassium 4.0, and creatinine 2.3. Troponin was 0.13 followed by 0.11, followed by 0.10. His proBNP is 2299. His chest x-ray appears unchanged from prior EKGs. ASSESSMENT: 1. Shortness of breath. 2. Chronic obstructive pulmonary disease. 3. Nonischemic cardiomyopathy, which is resolved. 4. Biventricular implantable cardioverter defibrillator. 5. Paroxysmal atrial fibrillation. 6. Obstructive sleep apnea. 7. Chronic renal insufficiency. 8. Prior deep venous thrombosis. 9. Hypertension. 10. Gastroesophageal reflux disease. 11. Ileostomy. 12. Prior endocarditis. In summary, the patient is a 76-year-old with a history of both chronic obstructive pulmonary disease and cardiac issues, presenting with worsening shortness of breath. He has a slightly elevated troponin, but denies any chest [address] [address] CONSULTATION Name: ZACH SHAY Room #: 455-[facility] IN M.R.#: [id number] Admission: 07/16/16 Attend Phys: Alpesh Dumont MD Discharge: 07/18/16 Date of : 42 Report #: [id number] pain or chest tightness, and there is no ischemia on his EKG. I think this is more likely related to his chronic hypoxemia due to his chronic obstructive pulmonary disease. He does have a slightly elevated proBNP, but clinically he does not appear to be volume overloaded and therefore, I am inclined to continue his standard cardiac medications. I recommend optimizing his pulmonary status and he already has a scheduled appointment to follow up with Dr. Mishra in a few weeks. <ELECTRONICALLY SIGNED> By: Jose Castaneda MD 07/29/16 1106 1221 0125 Jose Castaneda MD /nt
--- NOTE | ~2016-07-16 | H ---
[facility] [place] [address] [place] [address] HISTORY AND PHYSICAL Name: ZACH SHAY Room #: 170-9 ADM IN M.R.#: [id number] Admission: 07/16/16 Attend Phys: Jeff Newton MD Discharge: Date of : 42 Report #: [id number] THIS REPORT FOR: //name// CC: Jeff Newton NO PCP REASON FOR PRESENTATION: Shortness of breath. HISTORY OF PRESENT ILLNESS: The patient is 76-year-old with extensive past medical history including and not limited to COPD, cardiomyopathy with biventricular ICD. He sees Dr. Munoz for his COPD related issues. He uses 5 liters of oxygen at home. He is also known to have history of paroxysmal atrial fibrillation, iron deficiency anemia, chronic kidney disease, DVT. 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 He did not improve, so he decided to present to the emergency room for further evaluation and management. He is also known to have obstructive sleep apnea. On presentation to the emergency room, he received breathing treatment and that improved his breathing. However, he was found to have a mildly elevated troponin and CPK and was admitted for further evaluation and management. He denies any chest pain. PAST MEDICAL HISTORY: 1. Significant for cardiomyopathy. Status post pacemaker insertion. 2. Advanced COPD. 3. AFib. 4. Chronic iron deficiency anemia. 5. DVT. 6. Hyperlipidemia. 7. Remote history of endocarditis. 8. Status post colostomy with take down. 9. Status post ileostomy. 10. Multiple abdominal hernia repairs. 11. Diverticulitis. PAST SURGICAL HISTORY: 1. ICD. 2. Rotator cuffs. 3. Tonsillectomy. 4. Diverticulitis culminating into colostomy. This was also taken down, culminated into an ileostomy. 5. Prolonged hernia repair. FAMILY HISTORY: Significant for cardiomyopathy in sister. SOCIAL HISTORY: No drug or alcohol abuse. He lives with his . 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 [facility] [address] [place] [address] HISTORY AND PHYSICAL Name: ZACH SHAY [place] Room #: 170-9 [facility] IN ..#: [id number] Admission: 07/16/16 Attend Phys: Jeff Newton MD Discharge: Date of : 44 Report #: [id number] REVIEW OF SYSTEMS: GENERAL: No fever or chills. CARDIOVASCULAR: No palpitation, no chest pain; however, he does have shortness of breath. PULMONARY: Shortness of breath. GASTROINTESTINAL: No nausea or vomiting. GENITOURINARY: No frequency, no urgency. MEDICATIONS: 1. Flomax. 2. Warfarin. 3. Amiodarone. 4. Metoprolol. 5. Hydrocodone. 6. Torsemide. 7. Levofloxacin. PHYSICAL EXAMINATION: GENERAL: He is alert, oriented, in no apparent distress. He is on oxygen by nasal. VITAL SIGNS: Pulse rate was 84, respiratory rate 18, blood pressure 102/48. HEAD AND NECK: No jugular venous distention, no bruit, no thyromegaly. CHEST: Decreased air entry bilaterally with occasional wheeze. CARDIOVASCULAR: No rub detected. ABDOMEN: Soft, nontender with no hepatosplenomegaly. There are multiple incisional hernias from the previous colostomy, ileostomy sites. LOWER EXTREMITIES: No edema. LABORATORY VALUES: Reviewed. Anemia with hemoglobin of 9.8. Elevated creatinine at 2.2. Mildly elevated troponin. ASSESSMENT, IMPRESSION AND PLAN: 1. Chronic obstructive pulmonary disease exacerbation. 2. Chronic kidney disease. 3. Anemia. 4. Status post biventricular ICD device. 5. Anemia chronic with iron deficiency status. 6. Mildly elevated troponin nonsignificant. 7. Admission. 8. Continue with his home medications for his comorbid conditions. 9. Nebulizers. 10. Antibiotics. 11. IV steroids. 12. Serial troponins to rule out an acute cardiac event. 13. Creatinine seems to be stable and we will continue with the same chronic kidney disease related medications. He has a very mildly elevated troponin of [address] [address] HISTORY AND PHYSICAL Name: ZACH SHAY Room #: 170-9 [facility] IN ..#: [id number] Admission: 07/16/16 Attend Phys: Jeff Newton MD Discharge: Date of : 44 Report #: [id number] probably no clinical significance along with elevated CK-MB. If his troponins are negative x 2, we will observe overnight and discharge in the morning. 14. Resume his usual chronic obstructive pulmonary disease treatment at home. 15. Oxygen per his home protocol. 16. He has iron deficiency anemia with a low MCV and had an extensive workup in the past. We will watch for now. <ELECTRONICALLY SIGNED> By: Jeff Newton MD 07/16/16 1425 1345 1413 Jeff Newton MD /nt
--- NOTE | ~2016-07-16 | EKG ---
[address] [address] ELECTROCARDIOGRAM REPORT Name: SHAYZACH Room #: 455-P ADM IN M.R.#: [id number] Admission: 07/16/16 Attend Phys: Jeff Newton MD Discharge: Date of : 44 Report #: [id number] THIS REPORT FOR: //name// [facility] ED Test Date: 2016-07-16 Test Time: 11:25:30 Pat Name: ZACH SHAY Department: Room: [facility] Gender: M Manager Of Internal Audit: Bjorn PRO : 1940 Requested By: Rinku Gonzalez Order Number: [id number] MD: Jose Castaneda Measurements Intervals [place] Rate: 88 P: 48 NM: 55 QRS: 96 QRSD: 146 T: 191 QT: 427 QTc: 517 Interpretive Statements Sinus with Ventricular-paced rhythm No further analysis attempted due to paced rhythm Compared to ECG 04/03/2016 07:49:08 No significant changes Electronically Signed On 07-17-2016 22:23:09 CDT by Jose Castaneda [email or web address] <ELECTRONICALLY SIGNED> By: Jose Castaneda MD 07/17/16 2223 1125 1125 Jose Castaneda MD /[facility]
[2016-07-16 10:43] VITALS: BP 99/57
[2016-07-16] MEDS ORDERED: LEVAQUIN 500 M500 M2 PO (11:08)
[2016-07-16 12:09] LABS: HEMOGLOBIN 9.8 gm/dL (14.0-18.0); MCH 22.6 pg (26.0-34.0); MCHC 31.7 g/dL (28.0-37.0); MCV 71.3 fL (80.0-100.0); PLATELET COUNT 309 thou/uL (150-400); RBC 4.35 mil/uL (4.50-6.00); RDW 20.1 % (10.5-14.5); WBC 9.6 thou/uL (4.0-11.0)
[2016-07-16 12:10] LABS: MANUAL DIFF YES
[2016-07-16 12:14] LABS: APTT 32.9 Seconds (24.5-32.8); INR 1.8; PROTIME 18.8 Seconds (9.3-11.4)
[2016-07-16 12:15] LABS: CALCIUM 8.1 mg/dL (8.5-10.1); CREATININE 2.2 mg/dL (0.7-1.3); POTASSIUM 3.7 mmol/L (3.5-5.1)
[2016-07-16 12:26] LABS: ALBUMIN 3.2 g/dL (3.4-5.0); MAGNESIUM 1.5 mg/dL (1.8-2.4); TOTAL BILIRUBIN 0.4 mg/dL (<0.1-1.0); TOTAL PROTEIN 6.8 g/dL (6.4-8.2); TROPONIN-I 0.13 ng/mL (<0.04-0.07)
[2016-07-16 12:30] LABS: ABSOLUTE NEUTROPHILS 8.3 thou/uL (1.4-8.2); MICROCYTES 2+; TOTAL CELL COUNT 100
[2016-07-16 12:31] LABS: ANISOCYTOSIS 1+; HYPOCHROMASIA 2+; POLYCHROMASIA SLIGHT
[2016-07-16 14:08] VITALS: BP 107/49
[2016-07-16 15:46] VITALS: BP 122/82
[2016-07-16 19:30] VITALS: BP 102/65
[2016-07-17 03:44] VITALS: BP 102/55
[2016-07-17 05:25] LABS: HEMATOCRIT 31.1 % (42.0-52.0); HEMOGLOBIN 9.8 gm/dL (14.0-18.0); MCH 22.4 pg (26.0-34.0); MCHC 31.4 g/dL (28.0-37.0); MCV 71.5 fL (80.0-100.0); RBC 4.35 mil/uL (4.50-6.00); RDW 20.6 % (10.5-14.5); WBC 13.4 thou/uL (4.0-11.0)
[2016-07-17 05:34] LABS: INR 1.7; PROTIME 17.6 Seconds (9.3-11.4)
[2016-07-17 05:50] LABS: ALBUMIN 3.2 g/dL (3.4-5.0); CALCIUM 8.2 mg/dL (8.5-10.1); CREATININE 2.3 mg/dL (0.7-1.3); TOTAL BILIRUBIN 0.4 mg/dL (<0.1-1.0); TOTAL PROTEIN 6.8 g/dL (6.4-8.2)
[2016-07-17 07:30] VITALS: BP 102/53
[2016-07-17 09:30] LABS: ABG SAMPLE TYPE ARTERIAL; BE(vivo) 4.3 mmol/L (-2 to +3); HCO3 28.3 mmol/L (22.0-26.0); LACTATE 4.35 mmol/L (0.5-2.0); O2(CT) 13.8 mL/dL (15.0-23.0); O2Hb 90.4 % (92.0-98.0); PCO2 39.9 mmHg (35.0-45.0); PO2 64.9 mmHg (80.0-100.0); pH 7.469 (7.360-7.450); sO2 93.9 % (92.0-98.0); tCO2 29.5 mmol/L (24.0-30.0)
[2016-07-17 09:31] LABS: STICK SITE R.RADIAL
[2016-07-17 11:40] VITALS: BP 101/50
[2016-07-17 16:22] VITALS: BP 124/69
[2016-07-17 20:22] VITALS: BP 101/50
[2016-07-18 04:06] VITALS: BP 115/52
[2016-07-18 06:17] LABS: HEMATOCRIT 29.6 % (42.0-52.0); HEMOGLOBIN 9.3 gm/dL (14.0-18.0); MCH 22.3 pg (26.0-34.0); MCHC 31.2 g/dL (28.0-37.0); MCV 71.3 fL (80.0-100.0); RBC 4.15 mil/uL (4.50-6.00); RDW 20.1 % (10.5-14.5); WBC 17.8 thou/uL (4.0-11.0)
[2016-07-18 06:37] LABS: ALBUMIN 2.9 g/dL (3.4-5.0); CALCIUM 8.3 mg/dL (8.5-10.1); CREATININE 2.1 mg/dL (0.7-1.3); PHOSPHORUS 4.3 mg/dL (2.5-4.9); POTASSIUM 3.8 mmol/L (3.5-5.1)
[2016-07-18 07:34] VITALS: BP 165/42
[2016-07-18 11:12] VITALS: BP 105/39
[2016-07-18 13:38] VITALS: BP 122/56
[2016-07-18] MEDS ORDERED: LEVAQUIN 500 M500 M1 PO (15:35)
[2016-07-18 15:44] VITALS: BP 122/56
== END 2016-07-18 16:05 | disposition home or self-care (01) | DRG 871 ==
LOC: ER 10:42 → 4W 13:06 → EROBS 13:06 → 4W 15:04
PROVIDERS: Emergency Medicine; Hospitalist; Internal Medicine Pulmonary Disease
PROC: 5A09357 Assistance with Respiratory Ventilation, Less than 24 Consecutive Hours, Continuous Positive Airway Pressure (ICD-10-PCS; principal; 2016-07-18)
DX: A41.9 Sepsis, unspecified organism (principal); J96.21 Acute and chronic respiratory failure with hypoxia; J96.22 Acute and chronic respiratory failure with hypercapnia; N17.9 Acute kidney failure, unspecified; J44.1 Chronic obstructive pulmonary disease with (acute) exacerbation; I42.8 Other cardiomyopathies; I13.0 Hypertensive heart and chronic kidney disease with heart failure and stage 1 through stage 4 chronic kidney disease, or unspecified chronic kidney disease; I50.42 Chronic combined systolic (congestive) and diastolic (congestive) heart failure; J40 Bronchitis, not specified as acute or chronic; N40.0 Benign prostatic hyperplasia without lower urinary tract symptoms; E78.5 Hyperlipidemia, unspecified; G47.33 Obstructive sleep apnea (adult) (pediatric); K08.409 Partial loss of teeth, unspecified cause, unspecified class; I48.0 Paroxysmal atrial fibrillation; D63.8 Anemia in other chronic diseases classified elsewhere; N18.3 Chronic kidney disease, stage 3 (moderate); D64.9 Anemia, unspecified; D50.9 Iron deficiency anemia, unspecified; K21.9 Gastro-esophageal reflux disease without esophagitis; Z93.2 Ileostomy status; Z90.49 Acquired absence of other specified parts of digestive tract; Z86.73 Personal history of transient ischemic attack (TIA), and cerebral infarction without residual deficits; Z79.899 Other long term (current) drug therapy; Z87.891 Personal history of nicotine dependence; Z88.1 Allergy status to other antibiotic agents; Z88.8 Allergy status to other drugs, medicaments and biological substances; Z95.810 Presence of automatic (implantable) cardiac defibrillator; Z86.718 Personal history of other venous thrombosis and embolism; Z93.3 Colostomy status
CPT/HCPCS: 10045